=== PATIENT | female | born 2000 | race Caucasian/White ===

== ENCOUNTER 2024-07-06 02:48 | Emergency (ER) | payer SELFPAY ==
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
[2024-07-06 02:51] VITALS: BP 154/101; PULSE 99; RESP 16; TEMP 37.3; O2SAT 100
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
[2024-07-06] MEDS: ACETAMINOPHEN 1,000 MG/100 ML BAG 400 MG IVPB (03:41)
[2024-07-06 03:44] LABS: Abs Immature Grans 0.03 10^3/uL (0.0-0.06); Absolute Eosinophil Count 0.07 10^3/uL (0.0-0.7); Absolute Lymphocyte Count 2.62 10^3/uL (1.2-3.4); Absolute Neutrophil Count 7.72 10^3/uL (1.2-6.7); Basophils % 0.4 %; Eosinophils % 0.6 %; HCT 43.8 % (36.0-46.0); HGB 15.2 g/dL (11.2-15.7); Immature Grans % 0.3 %; Lymphocytes % 23.2 %; MCH 30.5 pg (27.0-33.0); MCHC 34.7 % (32.0-36.0); MCV 88 fL (80-95); Monocytes % 7.1 %; Neutrophils % 68.4 %; Platelet Count 346 10^3/uL (130-400); RBC 4.98 10^6/uL (3.93-5.22); RDW 12.9 % (11.7-14.6); RDW-SD 41.9 fL; WBC 11.28 10^3/uL (4.4-10.8)
[2024-07-06 03:47] LABS: Absolute Basophil Count 0.05 10^3/uL (0.0-0.2)
[2024-07-06 03:59] LABS: ALT 98 U/L (14-59); AST 210 U/L (15-37); Albumin 4.1 g/dL (3.4-5.0); Alkaline Phosphatase 95 U/L (46-116); Amylase 43 U/L (25-115); Anion Gap 13.3 mmol/L (3-11); BUN 9 mg/dL (7-18); Bilirubin, Total 1.37 mg/dL (0.2-1.0); CO2 23.7 mmol/L (21.0-32.0); CREATININE 0.8 mg/dL (0.55-1.02); Calcium 9.3 mg/dL (8.5-10.1); Chloride 105 mmol/L (98-107); Glucose 99 mg/dL (74-106); Lipase 22 U/L (16-77); Potassium 3.1 mmol/L (3.5-5.1); Sodium 142 mmol/L (136-145); Total Protein 7.9 g/dL (6.4-8.2)
[2024-07-06 04:55] VITALS: BP 119/63; PULSE 63; RESP 16; O2SAT 98
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
[2024-07-06] MEDS: Ketorolac 15 MG/ML VIAL IVP (05:02)
[2024-07-06] MEDS: Potassium Chloride Liquid 20 MEQ PKT 40 MEQ PO (05:29)
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
[2024-07-06 06:45] LABS: Bilirubin Small (Negative); Blood Trace-intact (Negative); Clarity Clear (Clear); Glucose Negative (Negative); Ketones >=160 mg/dL (Negative); Leukocyte Esterase Negative (Negative); Nitrite Positive (Negative); Specific Gravity 1.025 (1.005-1.025); pH 6.5 (5-8)
[2024-07-06 06:53] LABS: Bacteria Many HPF (Negative); C & S Indicated? No; Casts Negative LPF (Negative); Crystals Negative HPF (Negative); Epithelial Cells Moderate HPF (Negative); Mucus Negative (Negative); WBC 0-2 HPF (0-5)
[2024-07-06 07:20] VITALS: BP 129/80; PULSE 72; RESP 18; TEMP 36.5; O2SAT 99
== END 2024-07-06 07:23 | disposition home or self-care (01) ==
LOC: ER 07:37
PROVIDERS: Emergency Provider Student in an Organized Health Care Education/Training Program
DX: T74.11XA Adult physical abuse, confirmed, initial encounter (principal); S06.0X0A Concussion without loss of consciousness, initial encounter; H11.31 Conjunctival hemorrhage, right eye; H05.221 Edema of right orbit; S10.93XA Contusion of unspecified part of neck, initial encounter; R07.81 Pleurodynia; E87.6 Hypokalemia; R79.89 Other specified abnormal findings of blood chemistry; F17.200 Nicotine dependence, unspecified, uncomplicated; Y07.030 Male partner, current, perpetrator of maltreatment and neglect
CPT/HCPCS: 71250; 80053; 83690; 93005; 70450; 70486; 72125; 74176; 81003; 81015; 82150; 85025; 93010; J0131; J1885